=== PATIENT | female | born 1965 | race Caucasian/White ===

== ENCOUNTER 2017-06-04 16:35 | Emergency (ER) | payer BC ==
[2017-06-04 16:57] VITALS: BP 122/64
--- NOTE | 2017-06-04 19:03 | UC ---
Deion Boland Gabriel, scribed for Vamshi Cartagena MD on 06/04/17 at 1815 . Abdominal Pain Female HPI - HPI Summary HPI Summary: This patient is a 51 year old F presenting to [facility] [place] with a chief complaint of RUQ pain since 06-01-17. The patient rates the waxing and waning pain 7/10 in severity. Symptoms aggravated by PO intake. Symptoms alleviated by Tylenol and rest. Patient reports n/d and ABD bloating. Patient denies vomiting and fever. Pt sates the pain started in RUQ but has moved and is now diffuse. She has had it previously and it resolved after a day but it has persisted longer now. 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 Negative: Diarrhea Allergies/Adverse Reactions: Allergies Allergy/AdvReac Type Severity Reaction Status Date / Time amoxicillin Allergy Vomiting Verified 06/04/17 16:58 Home Medications: Home Medications Acetaminophen TAB* [Tylenol TAB*] 975 mg PO Q4H PRN 06/04/17 [History Confirmed 06/04/17] PMH/Surg Hx/FS Hx/Imm Hx Other History Of: Negative For: HIV, Hepatitis B - Surgical History Surgical History: Yes Surgery Procedure, Year, and Place: BACK - Family History Known Family History: Positive: Diabetes Negative: Cardiac Disease, Respiratory Disease, Seizure Disorder - Social History Alcohol Use: Occasionally Substance Use Type: None Smoking Status (MU): Never Smoked Tobacco Review of Systems Constitutional: Negative - fever Gastrointestinal: Abdominal Pain, Diarrhea, Nausea All Other Systems Reviewed And Are Negative: Yes Physical Exam Triage Information Reviewed: Yes Vital Signs: Initial Vital Signs Temp 98.0 F 06/04/17 16:50 Pulse 63 06/04/17 16:50 Resp 16 06/04/17 16:50 BP 122/64 06/04/17 16:50 Pulse Ox 100 06/04/17 16:50 Vital Signs Reviewed: Yes - Additional Comments General: well-appearing, no pain distress Skin: warm, color reflects adequate perfusion, dry Head: normal Eyes: EOMI, RICKY ENT: normal Neck: supple, nontender Respiratory: CTA, breath sounds present Cardiovascular: RRR Abdomen: soft and tender in epigastrium and mid ABD, good bowel sounds. Bowel: present Musculoskeletal: normal, strength/ROM intact Neurological: normal, sensory/motor intact, A&O x3 Psychological: affect/mood appropriate Abd Pain Female Course/Dx - Course Course Of Treatment: Medications reviewed. Allergies noted. BP noted and advised to follow up with PCP. DISCUSSED NEED FOR IMAGING AND TIMELY LAB RESULTS THAT ARE NOT AVAILABLE HERE IN THE CLINIC. RECOMMENDED GOING TO THE ED FOR FURTHER EVALUATION. PATIENT DECLINED AMBULANCE. - Differential Dx/Diagnosis Provider Diagnoses: ABDOMINAL PAIN. Elevated blood pressure without history of hypertension. Discharge - Discharge Plan Condition: Stable Disposition: HOME Patient Education Materials: Acute Abdominal Pain (ED) Referrals: Otf Bower MD [Primary Care Provider] - Additional Instructions: FOLLOW UP WITH YOUR DOCTOR. RETURN TO THE EMERGENCY DEPARTMENT FOR ANY WORSENING OF YOUR CONDITION OR QUESTIONS OR CONCERNS. Your blood pressure was elevated during todays visit; please follow up with your primary care provider within a week for further evaluation The documentation as recorded by the Deion molina Gabriel accurately reflects the service I personally performed and the decisions made by me, Vamshi Cartagena MD.
== END 2017-06-04 18:24 | disposition home or self-care (01) ==
LOC: UCEAST 16:35
DX: R10.11 Right upper quadrant pain (principal); R11.10 Vomiting, unspecified; R03.0 Elevated blood-pressure reading, without diagnosis of hypertension; Z88.1 Allergy status to other antibiotic agents
CPT/HCPCS: 99212; G0463

== ENCOUNTER 2017-06-04 18:40 | Emergency (ER) | payer BC ==
[2017-06-04 19:22] LABS: Hematocrit 41 % (35-47); Mean Corpuscular HGB Conc 34 g/dl (31-36); Mean Corpuscular Hemoglobin 31 pg (27-31); Mean Corpuscular Volume 90 fL (80-97); Mean Platelet Volume 8 um3 (7.4-10.4); Platelet Count 291 10^3/ul (150-450); Red Blood Count 4.57 10^6/ul (4.0-5.4); Red Cell Distribution Width 12 % (10.5-15); White Blood Count 7.1 10^3/ul (3.5-10.8)
[2017-06-04 19:25] LABS: ABS Basophils 0.1 10^3/ul (0-0.2); ABS Eosinophils 0.1 10^3/ul (0-0.6); ABS Lymphocytes 2.9 10^3/ul (1.0-4.8); ABS Monocytes 0.8 10^3/ul (0-0.8); ABS Neutrophils 3.5 10^3/ul (1.5-7.7); ABS Nucleated RBC 0 10^3/ul; Eosinophil % 1.2 % (0-6); Lymphocyte % 39.9 % (25-47); Nucleated Red Blood Cells % 0
[2017-06-04 19:33] LABS: EGFR Non-African American 101.5 (>60)
[2017-06-04] MEDS ORDERED: Metoclopramide IV* 5 MG/ML 2 ML VIAL IV SLOW PU ONE (22:42)
[2017-06-04] MEDS ORDERED: Ketorolac INJ* 30 MG/ML 1 ML VIAL IV PUSH PRN (22:42)
[2017-06-04] MEDS ORDERED: NS 0.9% 1000 ML* 1,000 ML IV ONE (22:43)
[2017-06-04] MEDS ORDERED: Iohexol 300* (CONTRAST) 10 ML SDV IV ONE (22:56)
[2017-06-05 00:49] LABS: Urine Appearance Cloudy; Urine Blood 1+ (Negative); Urine Color Yellow; Urine Ketones Trace (Negative); Urine Protein Negative (Negative); Urine Specific Gravity 1.014 (1.010-1.030); Urine Urobilinogen Negative (Negative)
[2017-06-05] MEDS ORDERED: Magnesium CITRATE* 300 ML BTL PO ONE (01:09)
[2017-06-05] MEDS ORDERED: Bisacodyl SUPP* 10 MG SUPP PR ONE (01:09)
[2017-06-05 02:02] VITALS: BP 123/63
--- NOTE | 2017-06-05 03:51 | ED ---
Ashely Boland Thomas, scribed for Shakeel Suarez MD on 06/04/17 at 2318 . Abdominal Pain/Female - HPI Summary HPI Summary: The patient is a 51 year old female with RUQ abdominal pain that began two days ago and is now located throughout the abdomen. It is worse with eating. She had an episode of diarrhea three days ago. In the ED, she states she has no appetite. 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 Onset/Duration: Lasting Days - 2, Still Present Severity Currently: Moderate Pain Intensity: 6 Pain Scale Used: 0-10 Numeric Location: Diffuse, Discrete At: RUQ Aggravating Factor(s): Food Alleviating Factor(s): Nothing Associated Signs and Symptoms: Positive: Decreased Appetite, Diarrhea Allergies/Adverse Reactions: Allergies Allergy/AdvReac Type Severity Reaction Status Date / Time amoxicillin Allergy Vomiting Verified 06/04/17 16:58 PMH/Surg Hx/FS Hx/Imm Hx Endocrine/Hematology History: Denies: Hx Diabetes Cardiovascular History: Denies: Hx Hypertension History: Denies: Hx Dialysis, Hx Renal Disease - Surgical History Surgery Procedure, Year, and Place: BACK Infectious Disease History: No Infectious Disease History: Denies: Traveled Outside the [place] in Last 30 Days - Family History Known Family History: Positive: Other - Fhx gallbladder problems - Social History Alcohol Use: Occasionally Substance Use Type: Reports: None Smoking Status (MU): Never Smoked Tobacco Review of Systems Negative: Fever Positive: Abdominal Pain, Diarrhea, Other - Decreased appetiite All Other Systems Reviewed And Are Negative: Yes Physical Exam - Summary Physical Exam Summary: VITAL SIGNS: Reviewed. GENERAL: Patient is a well-developed and nourished FEMALE who is lying comfortable in the stretcher. Patient is not in any acute respiratory distress. HEAD AND FACE: No signs of trauma. No ecchymosis, hematomas or skull depressions. No sinus tenderness. EYES: PERRLA, EOMI x 2, No injected conjunctiva, no nystagmus. EARS: Hearing grossly intact. Ear canals and tympanic membranes are within normal limits. MOUTH: Oropharynx within normal limits. NECK: Supple, trachea is midline, no adenopathy, no JVD, no carotid bruit, no c- spine tenderness, neck with full ROM. CHEST: Symmetric, no tenderness at palpation LUNGS: Clear to auscultation bilaterally. No wheezing or crackles. CVS: Regular rate and rhythm, S1 and S2 present, no murmurs or gallops appreciated. ABDOMEN: Soft. She has diffuse abdominal tenderness. No signs of distention. No rebound no guarding, and no masses palpated. Bowel sounds are hypoactive. EXTREMITIES: FROM in all major joints, no edema, no cyanosis or clubbing. NEURO: Alert and oriented x 3. No acute neurological deficits. Speech is normal and follows commands. SKIN: Dry and warm Triage Information Reviewed: Yes Vital Signs On Initial Exam: Initial Vitals Temp Pulse Resp BP Pulse Ox 97.5 F 68 16 135/60 100 06/04/17 18:43 06/04/17 18:43 06/04/17 18:43 06/04/17 18:43 06/04/17 18:43 Vital Signs Reviewed: Yes Diagnostics - Vital Signs Vital Signs Temp Pulse Resp BP Pulse Ox 06/04/17 20:46 98.3 F 60 15 130/62 100 06/04/17 18:43 97.5 F 68 16 135/60 100 - Laboratory Lab Results: Lab Results 06/04/17 06/04/17 06/04/17 Range/Units 19:08 19:08 19:08 WBC 7.1 (3.5-10.8) 10^3/ul RBC 4.57 (4.0-5.4) 10^6/ul Hgb 14.0 (12.0-16.0) g/dl Hct 41 (35-47) % MCV 90 (80-97) fL MCH 31 (27-31) pg MCHC 34 (31-36) g/dl RDW 12 (10.5-15) % Plt Count 291 (150-450) 10^3/ul MPV 8 (7.4-10.4) um3 Neut % (Auto) 47.5 (38-83) % Lymph % (Auto) 39.9 (25-47) % [place] % (Auto) 10.6 H (1-9) % Eos % (Auto) 1.2 (0-6) % Baso % (Auto) 0.8 (0-2) % Absolute Neuts (auto) 3.5 (1.5-7.7) 10^3/ul Absolute Lymphs (auto) 2.9 (1.0-4.8) 10^3/ul Absolute Monos (auto) 0.8 (0-0.8) 10^3/ul Absolute Eos (auto) 0.1 (0-0.6) 10^3/ul Absolute Basos (auto) 0.1 (0-0.2) 10^3/ul Absolute Nucleated RBC 0 10^3/ul Nucleated RBC % 0 Sodium 139 (133-145) mmol/L Potassium 4.1 (3.5-5.0) mmol/L Chloride 105 (101-111) mmol/L Carbon Dioxide 28 (22-32) mmol/L Anion Gap 6 (2-11) mmol/L BUN 10 (6-24) mg/dL Creatinine 0.62 (0.51-0.95) mg/dL Est GFR ( Amer) 130.5 (>60) Est GFR (Non-Af Amer) 101.5 (>60) BUN/Creatinine Ratio 16.1 (8-20) Glucose 95 (70-100) mg/dL Lactic Acid 0.7 (0.5-2.0) mmol/L Calcium 9.8 (8.6-10.3) mg/dL Total Bilirubin 0.40 (0.2-1.0) mg/dL AST 18 (13-39) U/L ALT 16 (7-52) U/L Alkaline Phosphatase 59 (34-104) U/L C-Reactive Protein < 1.00 (< 5.00) mg/L Total Protein 7.3 (6.4-8.9) g/dL Albumin 4.5 (3.2-5.2) g/dL Globulin 2.8 (2-4) g/dL Albumin/Globulin Ratio 1.6 (1-3) Lipase 23 (11.0-82.0) U/L Result Diagrams: 06/04/17 19:08 06/04/17 19:08 Lab Statement: Any lab studies that have been ordered have been reviewed, and results considered in the medical decision making process. - CT CT Abd/Pel CT Interpretation: No Acute Changes - Lung bases are clear. The visualized cardiac chambers are normal size and configuration. Normal liver, pancreas, gallbladder, spleen, adrenal glands and kidneys. The stomach and abdominal small and large bowel are normal. Large diffuse also is noted. There is no aortic aneurysm. There is no significant retropertitoneal lymphadenopathy. The pelvic small and large bowel are normal. The appendix is normal. The uterus and adnexal structures are normal. Urinary bladder is unremarkable. There is no pelvic free fluid. No discrete pelvic lymphadenopathy is identified. CT Interpretation Completed By: Radiologist Abdominal Pain Fem Course/Dx - Course Course Of Treatment: The patient is a 51 year old female with RUQ abdominal pain that began two days ago and is now located throughout the abdomen. In the ED course she was given Toradol, Reglan, and IV fluids. Bloodwork and urinalysis were obtained. CT AbdPel shows constipation. Patient will be discharged home with primary care follow up. - Diagnoses Provider Diagnoses: Constipation Discharge - Discharge Plan Condition: Stable Disposition: HOME Patient Education Materials: Constipation (DC), High Fiber Diet (ED) Referrals: Otf Bower MD [Primary Care Provider] - 3 Days Additional Instructions: Follow up with your primary care physician in three days. Return to the emergency department for any new or worsening symptoms. The documentation as recorded by the Ashely molina Thomas accurately reflects the service I personally performed and the decisions made by , Shakeel Suarez MD.
--- NOTE | 2017-06-05 07:54 | RAD ---
CLINICAL HISTORY: Abdominal pain, right upper quadrant pain COMPARISON: None TECHNIQUE: Multiple contiguous axial CT scans were obtained of the abdomen and pelvis after the administration of intravenous contrast. Coronal and sagittal multiplanar reformations are submitted for review. Oral contrast was not administered. Delayed images were obtained through the abdomen and pelvis. FINDINGS: LUNG BASES: The lung bases are clear. LIVER: The liver is normal in shape, size, contour, and attenuation. BILE DUCTS: There is no intrahepatic or extrahepatic biliary dilatation. GALLBLADDER: The gallbladder is normal, without pericholecystic inflammatory change. PANCREAS: The pancreas is normal, without mass or ductal dilatation. SPLEEN: Normal in size and appearance. UPPER GI TRACT: Evaluation of the gastrointestinal tract is limited by incomplete gastric distention. The upper GI tract is unremarkable. SMALL BOWEL AND MESENTERY: The small bowel is normal in contour, course, and caliber. There is no obstruction or dilatation. COLON: The colon is normal in contour, course, caliber. There is no pericolonic inflammatory change. There is a tubular, vermiform, hollow viscus that is blind ending, and originates from the cecum, consistent with a normal appendix. There is no periappendiceal inflammatory change. This is best seen on axial images 40 through 48. There is a large amount of stool throughout the colon. ADRENALS: Normal bilaterally. KIDNEYS: The kidneys are normal in shape, size, contour, and axis. There is no hydronephrosis or nephrolithiasis. BLADDER: The bladder is smooth in contour. PELVIC ORGANS: The uterus and adnexa are grossly normal for technique. AORTA: The aorta is normal. IVC: Unremarkable LYMPH NODES: There is no lymphadenopathy by size criteria. ABDOMINAL WALL: There is no evidence for abdominal wall hernia. BONES AND SOFT TISSUES: There are mild diffuse degenerative changes. OTHER: None IMPRESSION: LARGE AMOUNT OF STOOL WITHIN THE COLON. NO ACUTE CT PATHOLOGY OF THE VISUALIZED ABDOMEN OR PELVIS.
--- NOTE | 2017-06-05 08:10 | RAD ---
Indication: Postprandial RIGHT upper quadrant pain. Comparison: June 05, 2017 Technique: RIGHT upper quadrant ultrasound. Report: Appropriate direction flow documented in the portal and hepatic veins. 12 cm liver is increased in echogenicity. Negative for focal hepatic lesions. Negative for intrahepatic biliary dilatation. 3.2 mm common bile duct. Adequately distended gallbladder with normal 2.1 mm wall is without pathologic finding. Negative for sonographic Mobley's sign. The pancreas is partially obscured due to bowel gas with the visualized pancreas unremarkable. Negative for ascites. 9.7 x 4.8 x 3.8 cm RIGHT kidney is remarkable for a simple appearing 1.4 cm cyst at the lateral midpole. IMPRESSION: 1. Fatty infiltration of the liver. 2. No evidence for gallbladder pathology.
== END 2017-06-05 02:00 | disposition home or self-care (01) ==
LOC: ED 18:40
DX: K59.00 Constipation, unspecified (principal); R10.11 Right upper quadrant pain; R19.7 Diarrhea, unspecified
CPT/HCPCS: 36415; 74177; 76705; 80053; 81003; 81015; 83605; 83690; 85025; 86140; 87086; 96374; 99282; A9270-GY; J1885; J2765; Q9967